=== PATIENT | male | born 1930 | race Caucasian/White ===

== ENCOUNTER 2018-10-09 22:04 | Emergency (ER) | payer MEDICARE ==
--- NOTE | 2018-10-09 22:33 | ED ---
Weakness HPI - General Chief complaint: Weakness Stated complaint: Weakness Time Seen by Provider: 10/09/18 22:18 Source: patient Mode of arrival: ambulatory Limitations: no limitations - History of Present Illness Initial comments: Dajuan Kovacs" is an 88-year-old male with no past medical history aside from occasional acid reflux for which she takes low dose Prilosec daily. Patient presents the emergency department today via private vehicle for evaluation of generalized weakness and feeling unsteady. Patient reports that this evening he had a meeting from 7 to 9 PM. He reports around 8:15 or 8:30 PM he began feeling very unsteady on his feet. He went to the kitchen to get some coffee but felt very unstable, his friend encouraged him to sit down and drink a bottle water however this didn't improve his symptoms. Patient and contacted his to pick him up from the meeting. She did so and insisted number given to the hospital however the patient requested that she take him home first and that he could use the restroom at home and clean up before coming to the hospital. He reports that approximately 90 minutes of symptoms that have not resolved. Patient denies any lightheadedness, vision changes, ringing of the ears though he does wear hearing needs, he denies any chest pain, palpitations or shortness of breath. He denies any positional symptoms or reproducibility. He reports he Margy does not feel steady on his feet. He denies any weakness in one arm or leg any facial droop or trouble speaking or understanding speech. Good health throughout the day today, he reports that he drinks coffee this morning and ate his normal diet. does state that the patient very rarely drinks any water and she is often concerned that he is dehydrated but this is not changed today. - Related Data Home Medications Medication Instructions Recorded Confirmed Prevacid Otc 15mg 15 mg PO DAILY 10/09/18 10/09/18 Allergies Allergy/AdvReac Type Severity Reaction Status Date / Time No Known Allergies Allergy Verified 10/09/18 22:46 Review of Systems ROS Statement: Those systems with pertinent positive or pertinent negative responses have been documented in the HPI. ROS Other: All systems not noted in ROS Statement are negative. Past Medical History Past Medical History: GERD/Reflux History of Any Multi-Drug Resistant Organisms: None Reported Past Surgical History: Tonsillectomy Past Psychological History: No Psychological Hx Reported Smoking Status: Never smoker Past Alcohol Use History: None Reported Past Drug Use History: None Reported General Exam - General Exam Comments Initial Comments: GENERAL: Patient is well-developed and well-nourished. Patient is nontoxic and well- hydrated and is in no distress. HENT: Normocephalic, Atraumatic. Neck is soft and supple. No significant lymphadenopathy is noted. Oropharynx is clear. Moist mucous membranes. Neck has full range of motion without eliciting any pain. EYES: The sclera were anicteric and conjunctiva were pink and moist. Extraocular movements were intact and pupils were equal round and reactive to light. Eyelids were unremarkable. PULMONARY: Unlabored respirations. Good breath sounds bilaterally. No audible rales rhonchi or wheezing was noted. CARDIOVASCULAR: There is a regular rate and rhythm without any murmurs gallops or rubs. ABDOMEN: Soft and nontender with normal bowel sounds. SKIN: Skin is clear with no lesions or rashes and otherwise unremarkable. NEUROLOGIC: Patient is alert and oriented x3. Cranial nerves II through XII are grossly intact. Motor and sensory are also intact. Normal speech, volume and content. Symmetrical smile. Normal finger to nose, normal repetitive tasks, normal Romberg MUSCULOSKELETAL: Normal extremities with adequate strength and full range of motion. No lower extremity swelling or edema. No calf tenderness. LYMPHATICS: No significant lymphadenopathy is noted PSYCHIATRIC: Normal psychiatric evaluation. Limitations: no limitations Limitations: no limitations Course Vital Signs 10/09/18 10/10/18 10/10/18 22:08 00:31 02:20 Temperature 98.3 F 98.1 F Pulse Rate 68 62 58 L Respiratory 18 16 16 Rate Blood Pressure 175/110 159/85 152/83 O2 Sat by Pulse 98 98 98 Oximetry EKG Findings - EKG Comments: EKG Findings:: EKG obtained at 2250, rate of 63, rhythm is sinus, there is a normal axis, there are normal intervals, IA 150, QRS 86, QTC is or 21. There are no acute ST elevations or depressions. There is no evidence of acute ischemia or infarction. Medical Decision Making - Medical Decision Making Reed was seen and evaluated, history was obtained from the patient and at bedside This is a very healthy 88-year-old gentleman in his [employer] uniform who presents to the emergency department today with his for evaluation of feeling unsteady on his feet Patient's physical exam is unremarkable, his neuro exam is unremarkable, he has a normal gait, negative Romberg, normal finger to nose testing, normal repetitive tasks Labs with no significant abnormalities Computed tomography scan of the brain with age-related changes, CT angiography of the cervical spine and brain revealed patent arteries throughout with no evidence of stenosis Patient remains asymptomatic, able to walk with a normal gait, no lightheadedness, no feelings of weakness, no focal neurologic deficits I offered the patient admission for further evaluation and possible consult to neurology however the patient declined stating he would prefer to be discharged home. Patient will contact his primary care physician for follow-up. Return parameters were discussed or questions pertaining care were answered patient was discharged home in stable condition. - Lab Data Result diagrams: 10/09/18 23:07 10/09/18 23:07 Lab Results 10/09/18 10/09/18 10/09/18 Range/Units 23:07 23:07 23:07 WBC 7.6 (3.8-10.6) k/uL RBC 3.98 L (4.30-5.90) m/uL Hgb 13.9 (13.0-17.5) gm/dL Hct 40.2 (39.0-53.0) % MCV 101.1 H (80.0-100.0) fL MCH 34.8 (25.0-35.0) pg MCHC 34.5 (31.0-37.0) g/dL RDW 12.6 (11.5-15.5) % Plt Count 186 (150-450) k/uL Neutrophils % 81 % Lymphocytes % 12 % Monocytes % 4 % Eosinophils % 1 % Basophils % 0 % Neutrophils # 6.2 (1.3-7.7) k/uL Lymphocytes # 0.9 L (1.0-4.8) k/uL Monocytes # 0.3 (0-1.0) k/uL Eosinophils # 0.1 (0-0.7) k/uL Basophils # 0.0 (0-0.2) k/uL PT (9.0-12.0) sec INR (<1.2) APTT (22.0-30.0) sec Sodium 138 (137-145) mmol/L Potassium 4.8 (3.5-5.1) mmol/L Chloride 103 (98-107) mmol/L Carbon Dioxide 26 (22-30) mmol/L Anion Gap 9 mmol/L BUN 30 H (9-20) mg/dL Creatinine 1.25 (0.66-1.25) mg/dL Est GFR (CKD-EPI)AfAm 60 (>60 ml/min/1.73 sqM) Est GFR (CKD-EPI)NonAf 52 (>60 ml/min/1.73 sqM) Glucose 105 H (74-99) mg/dL Calcium 9.1 (8.4-10.2) mg/dL Magnesium 2.1 (1.6-2.3) mg/dL Total Bilirubin 0.6 (0.2-1.3) mg/dL AST 26 (17-59) U/L ALT 28 (21-72) U/L Alkaline Phosphatase 98 (38-126) U/L Total Creatine Kinase 40 L (55-170) U/L CK-MB (CK-2) 0.8 (0.0-2.4) ng/mL CK-MB (CK-2) Rel Index 2.0 Troponin I <0.012 (0.000-0.034) ng/mL Total Protein 6.9 (6.3-8.2) g/dL Albumin 4.0 (3.5-5.0) g/dL Urine Color Urine Appearance (Clear) Urine pH (5.0-8.0) Ur Specific Bourg (1.001-1.035) Urine Protein (Negative) Urine Glucose (UA) (Negative) Urine Ketones (Negative) Urine Blood (Negative) Urine Nitrite (Negative) Urine Bilirubin (Negative) Urine Urobilinogen (<2.0) mg/dL Ur Leukocyte Esterase (Negative) 10/09/18 10/10/18 Range/Units 23:07 00:31 WBC (3.8-10.6) k/uL RBC (4.30-5.90) m/uL Hgb (13.0-17.5) gm/dL Hct (39.0-53.0) % MCV (80.0-100.0) fL MCH (25.0-35.0) pg MCHC (31.0-37.0) g/dL RDW (11.5-15.5) % Plt Count (150-450) k/uL Neutrophils % % Lymphocytes % % Monocytes % % Eosinophils % % Basophils % % Neutrophils # (1.3-7.7) k/uL Lymphocytes # (1.0-4.8) k/uL Monocytes # (0-1.0) k/uL Eosinophils # (0-0.7) k/uL Basophils # (0-0.2) k/uL PT 10.3 (9.0-12.0) sec INR 1.1 (<1.2) APTT 23.0 (22.0-30.0) sec Sodium (137-145) mmol/L Potassium (3.5-5.1) mmol/L Chloride (98-107) mmol/L Carbon Dioxide (22-30) mmol/L Anion Gap mmol/L BUN (9-20) mg/dL Creatinine (0.66-1.25) mg/dL Est GFR (CKD-EPI)AfAm (>60 ml/min/1.73 sqM) Est GFR (CKD-EPI)NonAf (>60 ml/min/1.73 sqM) Glucose (74-99) mg/dL Calcium (8.4-10.2) mg/dL Magnesium (1.6-2.3) mg/dL Total Bilirubin (0.2-1.3) mg/dL AST (17-59) U/L ALT (21-72) U/L Alkaline Phosphatase (38-126) U/L Total Creatine Kinase (55-170) U/L CK-MB (CK-2) (0.0-2.4) ng/mL CK-MB (CK-2) Rel Index Troponin I (0.000-0.034) ng/mL Total Protein (6.3-8.2) g/dL Albumin (3.5-5.0) g/dL Urine Color Light Yellow Urine Appearance Clear (Clear) Urine pH 6.0 (5.0-8.0) Ur Specific Bourg 1.015 (1.001-1.035) Urine Protein Negative (Negative) Urine Glucose (UA) Negative (Negative) Urine Ketones Negative (Negative) Urine Blood Negative (Negative) Urine Nitrite Negative (Negative) Urine Bilirubin Negative (Negative) Urine Urobilinogen <2.0 (<2.0) mg/dL Ur Leukocyte Esterase Negative (Negative) Disposition Clinical Impression: Dehydration Disposition: HOME SELF-CARE Condition: Good Instructions: Dehydration (ED) Is patient prescribed a controlled substance at d/c from ED?: No Referrals: Zhao Rasheed MD [Primary Care Provider] - 1-2 days
[2018-10-09 23:48] LABS: Basophils % (A) 0 %; Eosinophils # (A) 0.1 k/uL (0-0.7); Eosinophils % (A) 1 %; HCT 40.2 % (39.0-53.0); HGB 13.9 gm/dL (13.0-17.5); Lymphocytes # (A) 0.9 k/uL (1.0-4.8); Lymphocytes % (A) 12 %; MCH 34.8 pg (25.0-35.0); MCHC 34.5 g/dL (31.0-37.0); MCV 101.1 fL (80.0-100.0); Mean Platelet Volume 7.1; Monocytes # (A) 0.3 k/uL (0-1.0); Monocytes % (A) 4 %; Neutrophils # (A) 6.2 k/uL (1.3-7.7); Neutrophils % (A) 81 %; Platelet Count 186 k/uL (150-450); RBC 3.98 m/uL (4.30-5.90); RDW 12.6 % (11.5-15.5); WBC 7.6 k/uL (3.8-10.6)
[2018-10-09 23:59] LABS: Calcium 9.1 mg/dL (8.4-10.2); Magnesium 2.1 mg/dL (1.6-2.3); Total Bilirubin 0.6 mg/dL (0.2-1.3); Total Protein 6.9 g/dL (6.3-8.2)
[2018-10-10 00:07] LABS: INR 1.1 (<1.2); Prothrombin Time 10.3 sec (9.0-12.0)
[2018-10-10 00:25] LABS: Potassium 4.8 mmol/L (3.5-5.1)
[2018-10-10 00:31] LABS: Creatine Kinase 40 U/L (55-170)
[2018-10-10 00:34] VITALS: RESP 16; TEMP 98.1
--- NOTE | 2018-10-10 00:34 | CT ---
EXAMINATION TYPE: CT brain wo con DATE OF EXAM: 10/09/2018 COMPARISON: None HISTORY: Dizziness CT DLP: mGycm Automated exposure control for dose reduction was used. FINDINGS: There is cerebral cortical atrophy. There is no mass effect nor midline shift. There is no sign of in tracranial hemorrhage. The calvarium is intact. There is no evidence of cortical infarct. IMPRESSION: CEREBRAL ATROPHY. NO ACUTE INTRACRANIAL ABNORMALITY.
--- NOTE | 2018-10-10 00:36 | XR ---
EXAMINATION TYPE: Single view chest DATE OF EXAM: 10/09/2018 COMPARISON: NONE HISTORY: Dizziness. Disequilibrium. TECHNIQUE: Single view FINDINGS: There is no heart failure. There is mild linear density at the right lung base. There are no hilar masses. There are chest leads. Bony thorax is intact. IMPRESSION: Minimal scarring or subsegmental atelectasis at the right lung base. Otherwise negative exam. Normal heart.
[2018-10-10 00:43] LABS: Creatine Kinase MB 0.8 ng/mL (0.0-2.4); Troponin I <0.012 ng/mL (0.000-0.034)
[2018-10-10 00:48] LABS: Appearance,Urine Clear (Clear); Bilirubin,Urine Negative (Negative); Blood,Urine Negative (Negative); Color,Urine Light Yellow; Glucose,Urine (UA) Negative (Negative); Ketones,Urine Negative (Negative); Leukocyte Esterase,Urine Negative (Negative); Nitrite,Urine Negative (Negative); Protein,Urine Negative (Negative); Specific Gravity,Urine 1.015 (1.001-1.035); Urobilinogen,Urine <2.0 mg/dL (<2.0)
--- NOTE | 2018-10-10 01:38 | CT ---
EXAM: CT Angiography Head With Intravenous Contrast CLINICAL HISTORY: Reason: disequilibirum TECHNIQUE: Axial computed tomographic angiography images of the head with intravenous contrast using CT angiography protocol. CTDI is 84.1 mGy and DLP is 468.5 mGy-cm. This CT exam was performed using one or more of the following dose reduction techniques: automated exposure control, adjustment of the mA and/or kV according to patient size, and/or use of iterative reconstruction technique. MIP reconstructed images were created and reviewed. COMPARISON: CT head 10/09/2018 FINDINGS: Right internal carotid artery: No acute findings. Intracranial segment is patent with no significant stenosis. No aneurysm. Right anterior cerebral artery: Unremarkable. No occlusion or significant stenosis. No aneurysm. Right middle cerebral artery: Unremarkable. No occlusion or significant stenosis. No aneurysm. Right posterior cerebral artery: No occlusion or significant stenosis. No aneurysm. Right posterior cerebral artery arises from internal carotid circulation. Right vertebral artery: Unremarkable as visualized. Left internal carotid artery: No acute findings. Intracranial segment is patent with no significant stenosis. No aneurysm. Left anterior cerebral artery: Unremarkable. No occlusion or significant stenosis. No aneurysm. Left middle cerebral artery: Unremarkable. No occlusion or significant stenosis. No aneurysm. Left posterior cerebral artery: Unremarkable. No occlusion or significant stenosis. No aneurysm. Left vertebral artery: Unremarkable as visualized. Basilar artery: Unremarkable. No occlusion or significant stenosis. No aneurysm. IMPRESSION: No significant stenosis or major arterial occlusion. EXAM: CT Angiography Neck With Intravenous Contrast CLINICAL HISTORY: Reason: disequilibirum TECHNIQUE: Axial computed tomographic angiography images of the neck with intravenous contrast using CT angiography protocol. CTDI is 84.1 mGy and DLP is 468.5 mGy-cm. This CT exam was performed using one or more of the following dose reduction techniques: automated exposure control, adjustment of the mA and/or kV according to patient size, and/or use of iterative reconstruction technique. MIP reconstructed images were created and reviewed. COMPARISON: No relevant prior studies available. FINDINGS: VASCULATURE: Right common carotid artery: Unremarkable. No significant stenosis. No dissection or occlusion. Right internal carotid artery: Unremarkable. Extracranial segment is patent with no significant stenosis. No dissection or occlusion. Right external carotid artery: Unremarkable. No occlusion. Right vertebral artery: Dominant right vertebral artery. No significant stenosis. No dissection or occlusion. Left common carotid artery: Unremarkable. No significant stenosis. No dissection or occlusion. Left internal carotid artery: Unremarkable. Extracranial segment is patent with no significant stenosis. No dissection or occlusion. Left external carotid artery: Unremarkable. No occlusion. Left vertebral artery: Left vertebral artery appears to arise from thoracic aortic arch. No significant stenosis. No dissection or occlusion. CAROTID STENOSIS REFERENCE USING NASCET CRITERIA: % ICA stenosis = (1 - narrowest ICA diameter/diameter of distal cervical ICA) x 100. Mild - <50% stenosis. Moderate - 50-69% stenosis. Severe - 70-94% stenosis. Near occlusion - 95-99% stenosis. Occluded - 100% stenosis. IMPRESSION: No significant steno-occlusive disease.
[2018-10-10 02:23] VITALS: BP 152/83; PULSE 58
== END 2018-10-10 02:39 | disposition home or self-care (01) ==
LOC: EC 22:04
DX: E86.0 Dehydration (principal); R53.1 Weakness; K21.9 Gastro-esophageal reflux disease without esophagitis; Z79.899 Other long term (current) drug therapy
CPT/HCPCS: 36415; 93005; 80053; 82550; 82553; 83735; 84484; 85025; 85610; 85730; 81003; 71046; 70496; 70450; 70498; 99285; Q9967

== ENCOUNTER → 2021-06-08 | Outpatient (CLI) | payer MEDICARE ==
--- NOTE | 2021-06-09 10:55 | ECHOF ---
Referral Reason:R01.1 cardiac murmur MEASUREMENTS -------- HEIGHT: 182.9 cm WEIGHT: 95.3 kg BP: RVIDd: 3.2 cm (< 3.3) IVSd: 1.3 cm (0.6 - 1.1) LVIDd: 4.1 cm (3.9 - 5.3) LVPWd: 1.4 cm (0.6 - 1.1) IVSs: 1.6 cm LVIDs: 2.6 cm LVPWs: 1.5 cm LAESV Index (A-L): 21.98 ml/m Ao Diam: 2.6 cm (2.0 - 3.7) AV Cusp: 1.6 cm (1.5 - 2.6) LA Diam: 4.6 cm (2.7 - 3.8) MV EXCURSION: 14.991 mm (> 18.000) MV EF SLOPE: 158 mm/s (70 - 150) EPSS: 0.2 cm MV E Luis Antonio: 1.00 m/s MV DecT: 261 ms MV A Luis Antonio: 1.12 m/s MV E/A Ratio: 0.89 RAP: 5.00 mmHg RVSP: 13.72 mmHg FINDINGS -------- Sinus rhythm. This was a technically adequate study. The left ventricular size is normal. Left ventricular wall thickness is normal. Overall left vent ricular systolic function is normal with, an EF between 55 - 60 %. The diastolic filling pattern is normal for the age of the patient 15.40. The right ventricle is normal in size. Normal LA size by volume 22+/-6 ml/m2. The right atrial size is normal. Interatrial and interventricular septum intact. There is mild aortic valve sclerosis. There is no evidence of aortic regurgitation. There is no e vidence of aortic stenosis. Mild mitral annular calcification present. No mitral regurgitation. The tricuspid valve appears structurally normal. Mild tricuspid regurgitation present. Right vent ricular systolic pressure is normal at < 35 mmHg. The right ventricular systolic pressure, as measu red by Doppler, is 13.72mmHg. The pulmonic valve was not well visualized. There is no pulmonic regurgitation present. The aortic root size is normal. IVC Not well visulized. There is no pericardial effusion. CONCLUSIONS -------- 1. Left ventricular wall thickness is normal. 2. Overall left ventricular systolic function is normal with, an EF between 55 - 60 %. 3. Normal LA size by volume 22+/-6 ml/m2. 4. There is mild aortic valve sclerosis. 5. Mild mitral annular calcification present. 6. Mild tricuspid regurgitation present. PLAQUE MAKER: Asmita Sauer RDCS
== END | disposition home or self-care (01) ==
LOC: RADECHMAIN 13:57
PROVIDERS: ATTEND Family Medicine
DX: I35.8 Other nonrheumatic aortic valve disorders (principal); I70.90 Unspecified atherosclerosis; I07.1 Rheumatic tricuspid insufficiency; R01.1 Cardiac murmur, unspecified
CPT/HCPCS: 93306

== ENCOUNTER → 2021-09-09 | Outpatient (CLI) | payer MEDICARE ==
[2021-09-09 10:05] VITALS: BP 140/87; PULSE 67; RESP 18; TEMP 97.2
--- NOTE | 2021-09-09 10:42 | P.PAINCN ---
History of Present Illness - Reason for Consult Consult date: 09/09/21 - Chief Complaint Chronic low back pain - History of Present Illness Mr. Vee is a 89-year-old male presented to clinic today for initial evaluation of chronic low back pain. 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 Patient was referred to our office from Dr. Aquino. He reports was no specific onset of his pain which is gradually over time. He reports his pain in his low back and occasionally occasion radiates down his right leg. He's been dealing this with most recently over the last 18 months. He describes it as a sharp achy sensation with an occasional electrical feeling down his right leg. Pain is worse with increased movements, increase activity and extensive walking. Pain is relieved with sitting and rest. He is tried direct support professional caregiver and physical therapy in the past they have not helped him significantly. He currently takes [id number] Tylenol less than 3000 mg a day, and he reports good relief with that medication. Today he rates his pain as 7 out of 10 on a 0-to-10 scale. He presents today with hopes of interventional procedures helping his pain. Past Medical History Past Medical History: GERD/Reflux, Hearing Disorder / Deafness, Memory Impairment, Osteoarthritis (OA) Additional Past Medical History / Comment(s): Patient goes by Alban. Chronic back pain. "PSI slightly elevated". "Slight short term memory problems." Bilateral hearing aid use. Uses cane PRN. History of Any Multi-Drug Resistant Organisms: None Reported Past Surgical History: Tonsillectomy Past Anesthesia/Blood Transfusion Reactions: No Reported Reaction Smoking Status: Never smoker - Past Family History Sister(s) Family Medical History: Cancer Medications and Allergies Home Medications Medication Instructions Recorded Confirmed Type Acetaminophen [Tylenol] 1,000 mg PO Q6H PRN 09/03/21 09/03/21 History Ascorbic Acid [Vitamin C] 2,000 mg PO DAILY 09/03/21 09/03/21 History Cholecalciferol [Vitamin D3 (25 50 mcg PO DAILY 09/03/21 09/03/21 History Mcg = 1000 Iu)] Lansoprazole 15 mg PO DAILY 09/03/21 09/03/21 History Multivitamins, Thera [Multivitamin 1 tab PO DAILY 09/03/21 09/03/21 History (formulary)] [place]-3 Fatty Acids/Fish Oil [Fish 1 each PO DAILY 09/03/21 09/03/21 History Oil 1,000 mg Softgel] Tamsulosin [Flomax] 0.4 mg PO DAILY 09/03/21 09/03/21 History Allergies Allergy/AdvReac Type Severity Reaction Status Date / Time No Known Allergies Allergy Verified 09/03/21 09:25 Physical Exam Vitals: Vital Signs Temp Pulse Resp BP Pulse Ox 09/09/21 10:00 97.2 F L 67 18 140/87 96 REVIEW OF ORGAN SYSTEMS: CONSTITUTIONAL: No fevers or chills. No recent weight loss. EYES: denies troubles with vision. HEENT: No difficulties with hearing. No nosebleeds. No difficulty swallowing. RESPIRATORY: Denies any troubles with breathing or dyspnea on exertion. CARDIOVASCULAR: Denies any chest pain, palpitations, or recent heart attacks. GASTROINTESTINAL: Denies fatty food intolerance. Has change in bowel habits and gas bloat. GENITOURINARY: Denies any blood in urine. Has increased urinary frequency. NEUROLOGICAL: + numbness and tingling along the distal extremities. No seizure disorders or headaches. MUSCULOSKELETAL: Has back pain. SKIN:no skin cancer. No rash. PSYCHIATRIC: Denies current depression or suicidal th oughts. ENDOCRINE: Denies current thyroid disorders. Denies any blood sugar glucose intolerance. HEME/LYMPHATIC: Denies any lumps and bumps around the neck . History of deep venous thrombosis. ALLERGY/IMMUNOLOGY: No immunoglobulin therapy. No immune deficiencies. BREAST: Denies current breast lumps, pain or nipple discharge. Physical Examinations : Constitutiona : Cooperative , not in acute distress walks with cane. HEENT : nech : supple , no Lymphadenopathy , normal thyroid size . : eyes no ptosis , no icterus, no photophobia . : ENT normal of hearing , normal oropharynx , no Thrush . Respiratory : Chest clear to auscultations Bilaterally , no wheezing , no Rhonchi . Cardiovascula : regular rate and rhythem , S1 , S2 , no S3 , no S4. Gastrointestina : abdomen soft no tenderness , bowel sounds , no organomegally . Genitourinary : Defferred . neurologic : Cranial nerve II to XII intact , no focal neurological deffecit . psychatric : alert , oriented X 3 , appropriate affect , intact judgment and insight . Lymphatic : no Lymphadenopathy . musculoskeltal : Lumber spine moter stegnth lower extremities ,thigh and legs 5/5 Right side , 5/5 Left side deep tendon reflexes : normal Knee Jerk , normal ankle Jerk lumber facet Loading Test= positive Right , positive Left Range of motion of the lumbar spine Flexion 30 degrees, extension 10 degrees strait leg raising test , negative Fabere test= positive negative. No tenderness over the Sacroiliac joint on the Right , and Left sides Gaenslen test= negative. Seated flexion test= negative. Assessment and Plan Assessment: Assessment and plan= chronic low back pain secondary to lumbar degenerative disc disease , lumbar spondylosis with lumbar facet arthropathy . Patient denies any side effects of the current pain medication and the current treatment/medication helping the patient to do activity of daily living , Diagnoses, prognosis, treatment options, including but not limited to physical therapy, medication management, interventional therapies, and surgery, were discussed with the patient All the questions answered The narcotic consent was not signed MAPS Reviwed and it was apropriate . Medication managements= [id number] Tylenol 1000 mg 3 times a day Plan: Scheduled patient for bilateral lumbar facet block at L3 4 and L4 5. In the future consider lumbar epidural steroid injection at L5-S1 I spent extensive time with the patient and review of her records. I have spent 50 minutes on patient care today. The time was used to review the medical records including relevant urine studies and Prescription history (MAPs), review of the available imaging, evaluation and examination of the patient, coordination of care with the medical staff and if applicable referring physicians, as well as creation of the medical record. Maps were checked and appropriate, opioid start talking form is on file and updated, urine drug screens of been appropriate and have been reviewed. - PQRS measures = - Patient's medications are documented in the chart. -Tobacco use is negative -Patient's has received pneumococcal vaccine. -Advanced care planning discussed, patient not eligible. -Opiate contract not signed. -Pain positive and follow-up visit/procedure is scheduled. -Patient's blood pressure measured [140/87 ] , and documented in the record ,and patient will follow up with the primary care. -Patient was not identified as an unhealthy alcohol user Time with Patient: Greater than 30 PQRS Measure Charge Sheet Mode of Arrival: Cane - Pain Location Lower Back Non-Pharmacological Interventions: Inactivity, Physical Therapy, Stretching Pharmacological Interventions: PRN Medication PQRS Narrative: Smoking Status Never smoker Blood Pressure 140/87 Pain Intensity [Lower Back] 5 Scale Used Numeric (1 - 10) Hx Alcohol Use (MH) No Home Medications: Ambulatory Orders Acetaminophen [Tylenol] 1,000 mg PO Q6H PRN 09/03/21 Ascorbic Acid [Vitamin C] 2,000 mg PO DAILY 09/03/21 Cholecalciferol [Vitamin D3 (25 Mcg = 1000 Iu)] 50 mcg PO DAILY 09/03/21 Lansoprazole 15 mg PO DAILY 09/03/21 Multivitamins, Thera [Multivitamin (formulary)] 1 tab PO DAILY 09/03/21 [place]-3 Fatty Acids/Fish Oil [Fish Oil 1,000 mg Softgel] 1 each PO DAILY 09/03/21 Tamsulosin [Flomax] 0.4 mg PO DAILY 09/03/21
== END | disposition home or self-care (01) ==
LOC: PNWHC3 09:47
PROVIDERS: ATTEND Student in an Organized Health Care Education/Training Program
DX: M51.36 Other intervertebral disc degeneration, lumbar region (principal); M47.896 Other spondylosis, lumbar region
CPT/HCPCS: 99211

== ENCOUNTER 2021-10-27 08:56 | Day surgery (SDC) | payer MEDICARE ==
[2021-10-23 14:07] VITALS: BMI 28.3
[2021-10-27] MEDS ORDERED: LACTATED RINGERS 1,000 ML IV SCH (09:00)
[2021-10-27 09:14] VITALS: TEMP 97.2
[2021-10-27] MEDS ORDERED: MIDAZOLAM 2 MG/2 ML VIAL ONE (09:17)
[2021-10-27] MEDS ORDERED: TRIAMCINOLONE ACETONIDE 40 MG/ML 1 ML VIAL ONE (09:17)
[2021-10-27] MEDS ORDERED: fentaNYL (PF) 50 MCG/ML 2 ML AMP ONE (09:17)
[2021-10-27] MEDS ORDERED: ROPIVACAINE 5MG/ML 20ML VIAL ONE (09:17)
[2021-10-27] MEDS ORDERED: IV FLUID CONTINUATION 1,000 ML IV ONE (09:40)
--- NOTE | 2021-10-27 09:40 | P.PCN ---
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 Procedure: #1 Diagnostic Medial Branch Block at bilateral Lumbar L3-L4, and L4- 5 ( total 4 levels) Surgeon: Julieth Mcpherson Anesthesia: Local: 1% Lidocaine, IV sedation : Versed 1 mg and fentanyl 50 g. Complications: None EBL: None Specimen removed: None Fluoroscopic image: Saved to patient electronic medical records. Indications for Procedure: The patient is well known to pain clinic for his chronic low back pain management. The lumbar facet loading test was positive with a clinical diagnosis of lumbar facet arthropathy. Failed with conservative therapy. Came here for interventional help for better pain relief. Procedure and Findings: The patient was seen and examined. The written informed consent was obtained after explaining the risks, benefits and alternatives of the procedure to the patient. The patient was brought to the procedure room and was placed in the prone position on the operating table table. A pillow was placed under the abdomen to reduce lumbar lordosis. Standard anesthesia monitoring was done through out the procedure. The skin preparation was done with ChloraPrep, and draping was done in usual sterile fashion. Sterile technique was observed throughout the procedure. Under fluoroscopic guidance, right the Lumbar 3, 4, 5 levels were identified in the AP view. For lumbarL3, L4, and L5 levels the targeting area of superior articular process, and close to the most medial and superior aspect of transverse process identified, marked. 1ml of 1% Lidocaine was used with a 25 gauge needle to achieve adequate local anesthesia of the skin and subcutaneous tissue at each level. A 22 gauge 3.5 inch spinal needle was placed and advanced targeting area which was close to the most medial and superior aspect of the transverse process. A bony contact was obtained and needle tip position was confirmed at anteroposterior view. No paresthesia was noted. A negative aspiration was confirmed. 1 ml solution per level was injected, the block solution containing 5 ml of 0.5% ropivacaine preservative-free solution mixed with 40 MG of Kenalog. The needles were removed intact. Entire procedure repeated on the left side. Lumbar area was cleaned and bandages were applied. Disposition : The patient tolerated the procedure very well. The patient was transferred to the recovery room and remained stable until discharged home. The patient was given detailed discharge instructions for infection, bleeding, and increased pain at the injection site, and was advised to seek immediate medical attention should significant side effects develop. The patient will be scheduled with Pain Clinic within 4 weeks for repeat procedure if it's helpful.
[2021-10-27 09:44] VITALS: RESP 18
[2021-10-27 10:06] VITALS: BP 165/67; PULSE 72
--- NOTE | 2021-10-27 11:18 | FL ---
Fluoroscopy HISTORY: Pain 3 seconds fluoroscopy time supplied to the referring clinician. 2 intraoperative C-arm images docume nt the procedure. See dictated report from anesthesia.
== END 2021-10-27 10:22 | disposition home or self-care (01) ==
LOC: ORPAIN 08:56
DX: M47.816 Spondylosis without myelopathy or radiculopathy, lumbar region (principal); G89.29 Other chronic pain
CPT/HCPCS: 64493; 64494; J2250; J3301; J3010; J2795; 99152

== ENCOUNTER → 2021-11-25 | Outpatient (CLI) | payer MEDICARE ==
--- NOTE | 2021-11-25 11:07 | P.PN ---
Subjective Progress Note Date: 11/25/21 Principal diagnosis: A 89 yr old male with at side with a history of severe and chronic low back pain secondary to lumbar degenerative disc diseases and lumbar spondylosis with facet arthropathy presents today for evaluation of his BL L3-L4/ L4-L5 MBBs completed on 10/27/21. Admits he experienced > 80% pain relief and still going strong. Pain level is currently at 1 /10 in intensity but only provoked with twisting. Pain is dull/ achy in character localized in the lower aspects of the lumbar spine. Pain is alleviated with Tylenol OTC, topical lidoderm patches were slightly effective, injections, heat, physical therapy approximately 2 years, chiropractic treatments were less effective and rest. Interventional pain procedures completed include MBB of BL L3-L4/ L4-L5 Patient denies any side effects of the medication(s), denies excessive drowsiness or sleepiness, denies suicidal ideation and reports that the current pain medication is helping to control the pain and improve activities of daily living. Patient denies any motor or sensory deficits. Patient denies any fever or night sweats, denies any change in the bowel movements or urination. Physical Examination: -Constitutional: Cooperative. Not in acute distress . -HEENT: Neck is supple. No lymphadenopathy. No thyromegaly. Normal thyroid size. Eyes: No ptosis , no icterus, no photophobia. ENT: No auditory deficits. Normal oropharynx. No Thrush. - Respiratory: Chest clear to auscultations bilaterally. No wheezing. No rhonchi. - Cardiovascular: Regular rate and rhythm. S1 / S2 , no S3 , no S4. - Gastrointestinal: Abdomen soft no tenderness. Bowel sounds positive in all four quadrants. No organomegaly. - Genitourinary: Deferred. - Neurologic: Cranial nerve II to XII intact. No focal neurological deficits. - Psychatric: Alert & oriented x 3. Matching mood & appropriate affect. Judgment and insight intact. - Lymphatic: No Lymphadenopathy. - Musculoskeletal: Cervical spine: Muscle bulk/ tone/ strength in the bilateral upper extremities normal. Facet loading test cervical area positive. Lumbar spine: Motor bulk/ tone/ strength lower extremities , thigh and legs : age appropriate Deep tendon reflexes : Normal Knee Jerk. Normal Ankle Jerk . Lumbar Facet Loading Test negative Straight Leg Raise: positive at 30 degree right side/ left side Cameron test: positive right side / left side Range of motion: Flexion of the lumbar spine <60 degrees Range of motion: Extension of the lumbar spine <20 degrees Severe tenderness over the Sacroiliac joint: right side / left side IT IS MILD Assessment and plan: Chronic low back pain secondary to lumbar degenerative disc disease , lumbar spondylosis with facet arthropathy without myelopathy Chronic and current use of high-risk medication (Opioids). Still feeling benefits of MBBs and disinterested in additional work at this time Advised of integrative pain relieving techniques he can perform at home, including massage, epsom salt baths, pulsating showers, stretching, etc May return to clinic for evaluation if pain relieving effects of MBBs wanes off The patient was counseled about risk of opioid use, psychological risk associated with opioids and was orally counseled to not overuse , divert or sell medications. Pt is to store medication in a safe location. The patient is counseled against driving while using narcotic medica tions and also not to use alcohol or any illicit recreational drugs. Patient verbalized understanding that the lack of compliance will result in failure to renew narcotic prescription(s) as well as possible discharge from the clinic Diagnoses, prognosis and treatment options including but not limited to physical therapy, surgical interventions, interventional therapies and medicatio n management including narcotics and adjuvant medication were discussed. All patient questions answered MAPS reviewed and it was appropriate. I have spent 31 minutes on patient care today. Dr Oliva was available by phone for the evaluation of this patient. The time was used to review the medical records including relevant urine studies and Prescription history (MAPs), review of the available imaging, evaluation and examination of the patient, coordination of care with the medical staff and if applicable referring physicians, as well as creation of the medical record PQRS Measure Charge Sheet - Pain Location Lower Back Non-Pharmacological Interventions: Heat Pharmacological Interventions: Epidural PQRS Narrative: Smoking Status Never smoker Hx Alcohol Use (MH) No Home Medications: Ambulatory Orders Ascorbic Acid [Vitamin C] 2,000 mg PO DAILY 09/03/21 Cholecalciferol [Vitamin D3 (25 Mcg = 1000 Iu)] 50 mcg PO DAILY 09/03/21 Lansoprazole 15 mg PO DAILY 09/03/21 Multivitamins, Thera [Multivitamin (formulary)] 1 tab PO DAILY 09/03/21 [place]-3 Fatty Acids/Fish Oil [Fish Oil 1,000 mg Softgel] 1 each PO DAILY 09/03/21 Tamsulosin [Flomax] 0.4 mg PO DAILY 09/03/21
[2021-11-25 11:11] VITALS: BP 131/85; PULSE 65; RESP 18
== END | disposition home or self-care (01) ==
LOC: PNWHC3 10:25
PROVIDERS: ATTEND Physician Assistant Medical
DX: M47.896 Other spondylosis, lumbar region (principal); M51.36 Other intervertebral disc degeneration, lumbar region
CPT/HCPCS: 99211

== ENCOUNTER 2022-04-16 10:00 | Day surgery (SDC) | payer MEDICARE ==
[2022-04-15 09:13] VITALS: BMI 28.7
[~2022-04-16 10:00] MED LIST: LACTATED RINGERS 1,000 ML IV SCH; LIDOCAINE 1% (10MG/ML) FOR IV START INTRADERMA PRN
[2022-04-16 10:34] VITALS: TEMP 97.9
[2022-04-16] MEDS ORDERED: MIDAZOLAM 2 MG/2 ML VIAL ONE (12:36)
[2022-04-16] MEDS ORDERED: methylPREDNISolone ACETATE 40 MG/ML 1 ML VIAL ONE (12:36)
[2022-04-16] MEDS ORDERED: fentaNYL (PF) 50 MCG/ML 2 ML AMP ONE (12:36)
[2022-04-16] MEDS ORDERED: ROPIVACAINE 5MG/ML 20ML VIAL ONE (12:36)
--- NOTE | 2022-04-16 12:58 | P.PCN ---
Date of Procedure: 04/16/22 Procedure(s) Performed: PREOPERATIVE DIAGNOSIS : 1- Lumbar spondylosis with Facet Arthropathy without myelopathy . 2- Lumber degenerative disc disease POSTOPERATIVE DIAGNOSIS: 1- Lumbar spondylosis with Facet Arthropathy without myelopathy . 2- Lumber degenerative disc disease PROCEDURE: Diagnostic bilateral L2 ,L3 , L4 medial branch block under fluoroscopy guidance(fluoroscopy images available in the radiology Department ) ( To target the facet joint between bilateral L3-4 ,and L4-5 )#2 nd ANESTHESIA:, monitored anesthesia care as per anesthesia department. EBL: Minimal COMPLICATION: None PROCEDURE INDICATION: Chronic low back pain secondary to Facet arthropathy unresponsive to conservative treatment. PROCEDURE DESCRIPTION: the patient was seen and identified in the preop holding area , risks and benefits and possible complications of the procedure and alternative were discussed with the patient, and the patient agreed to proceed with the procedure and signed the consent and vital signs monitored during the procedure and fluoroscopy was used to maximize the benefit and accuracy of the needle placement, and sedation was given to decrease patient anxiety, patient was taken to the procedure room and placed in prone position vital signs monitored in the back prepped with chlorhexidine X3 then under strict sterile technique using a right oblique fluoroscopy ,the junction of the transverse process and the superior articulating process of the right L2 , L3 , L4 vertebra which corresponding to the fluoroscopy image of the eye of the Wolf dog on the block side for the medial branches and subsequently , after local infiltration of skin and subcu tissuies with Ropivacaine 0.5 % , one mL at each level ,then 22-gauge Quincke-type needles , 3 needle was used , each one of them placed at the junction of the base of the transverse process and the superior articular process at the appropriate level, and the needle was advanced until the periosteum contacted, needle placement confirmed with AP oblique and lateral view and after appropriate needle placement confirmed, and after negative aspiration for heme and CSF and there was no paresthesia 1-1/2 mL of Ropivacaine 0.5% mixed with 20 mg Depo-Medrol , then half mL injected at each level after negative aspiration the needle subsequently removed and the same procedure repeated for the left side at left side at L2 ,L3 , L4 levels. At the end of the procedure and the needles removed and a bandage applied after the skin was cleaned the cleaning solution patient taken to recovery room in stable condition and monitors in the recovery room for 20-30 minutes and discharged home in stable condition after discharge criteria met and patient will follow up with the pain clinic in 2-4 weeks
[2022-04-16] MEDS ORDERED: IV FLUID CONTINUATION 1,000 ML IV ONE (13:00)
[2022-04-16 13:22] VITALS: BP 134/83; PULSE 58; RESP 16
--- NOTE | 2022-04-16 13:34 | FL ---
Fluoroscopy INDICATION: Pain FINDINGS: Fluoroscopy time: 27 seconds. Images obtained: 5. IMPRESSIONS: 1. Documentation of fluoroscopy.
== END 2022-04-16 13:35 | disposition home or self-care (01) ==
LOC: ORPAIN 10:00
PROVIDERS: ATTEND Specialist
DX: M47.816 Spondylosis without myelopathy or radiculopathy, lumbar region (principal); M51.36 Other intervertebral disc degeneration, lumbar region
CPT/HCPCS: 64493; 64494; J2250; J1030; J3010; J2795

== ENCOUNTER → 2022-05-06 | Outpatient (CLI) | payer MEDICARE ==
[2022-05-06 12:50] VITALS: BP 141/76; PULSE 95; RESP 18; TEMP 97.5
--- NOTE | 2022-05-06 14:26 | P.PAINPG ---
PQRS Measure Charge Sheet Comment: A 89 yr old male with at side with a history of severe and chronic low back pain secondary to lumbar degenerative disc diseases and lumbar spondylosis with facet arthropathy presents today for evaluation s/p MBB of BL L3-L4, L4-L5 #2. Patient states he experienced 90% pain relief x 1-2 days s/p procedure. Pain level is currently at 2/10 in intensity, on & off "sore" when sitting, localized to the lower aspect of the lumbar spine "for a few years" with radiation of pain down the BLEs. Pain is provoked by walking/standing. Pain is alleviated with heating pad use, repositioning, use of a walking cane for ambulation, home based stretching regimen and rest. Interventional pain procedures completed include BL L2-L4 MBB #1. Patient is currently on DENIES Patient denies any side effects of the medication(s), denies excessive drowsiness or sleepiness, denies suicidal ideation and reports that the current pain medication is helping to control the pain and improve activities of daily living. Patient denies any motor or sensory deficits. Patient denies any fever or night sweats, denies any change in the bowel movements or urination. Physical Examination: -Constitutional: Cooperative. Not in acute distress . - Neurologic: Cranial nerve II to XII intact. No focal neurological deficits. - Psychatric: Alert & oriented x 3. Matching mood & appropriate affect. Judgment and insight intact. - Musculoskeletal: Cervical spine: Muscle bulk/ tone/ strength in the bilateral upper extremities normal Vertebral body tenderness to palpation over Spurling test positive Distraction test positive Facet loading test positive Thoracic spine Muscle bulk / tone/ strength in the bilateral paraspinal muscles normal Vertebral body tender to palpation over Facet loading test positive Lumbar spine: Motor bulk/ tone/ strength lower extremities , thigh and legs : 5/5 Deep tendon reflexes : Normal Knee Jerk. Normal Ankle Jerk . Vertebral body tenderness to palpation over Lumbar Facet Loading Test positive Straight Leg Raise: positive at 30 degrees right side/ left side Gaenslen's Test positive Sacral spine : Severe tenderness over the Sacroiliac joint: right side / left side Range of motion: Flexion of the lumbar spine <60 degrees Range of motion: Extension of the lumbar spine <20 degrees Gaenslen's Test positive Montrell's Test positive Cameron test: positive right side / left side Thigh Thrust Test Sacral Thrust Test Assessment and plan: Chronic low back pain secondary to lumbar degenerative disc disease , lumbar spondylosis with facet arthropathy without myelopathy Recommendation of BL L3-L4, L4-L5 RFA. Risks, benefits of procedure discussed and pt verbalized understanding. Denies anticoagulant use or medical history of diabetes. All patient questions answered MAPS reviewed and it was appropriate. I have spent less than 30 minutes on patient care today. Dr Oliva was available by phone for the evaluation of this patient. The time was used to review the medical records including relevant urine studies and Prescription history (MAPs), review of the available imaging, evaluation and examination of the patient, coordination of care with the medical staff and if applicable referring physicians, as well as creation of the medical record PQRS Narrative: Smoking Status Never smoker Hx Alcohol Use (MH) No Home Medications: Ambulatory Orders Ascorbic Acid [Vitamin C] 2,000 mg PO DAILY 09/03/21 Cholecalciferol [Vitamin D3 (25 Mcg = 1000 Iu)] 50 mcg PO DAILY 09/03/21 Lansoprazole 15 mg PO DAILY 09/03/21 Multivitamins, Thera [Multivitamin (formulary)] 1 tab PO DAILY 09/03/21 [place]-3 Fatty Acids/Fish Oil [Fish Oil 1,000 mg Softgel] 1 each PO DAILY 09/03/21 Tamsulosin [Flomax] 0.4 mg PO DAILY 09/03/21 Controlled Substance Measures - Controlled Substance Measures Is patient prescribed a controlled substance at discharge?: No
== END ==
LOC: PNWHC3 09:49
PROVIDERS: ATTEND Specialist
DX: M51.36 Other intervertebral disc degeneration, lumbar region (principal); M47.816 Spondylosis without myelopathy or radiculopathy, lumbar region; G89.29 Other chronic pain
CPT/HCPCS: 99211